=== PATIENT | male | born 1950 | race Hispanic/Latino ===

== ENCOUNTER 2019-10-24 01:02 | Emergency (ER) | payer MEDICARE, OTHER ==
[2019-10-24 01:44] LABS: #Basophils 0.1 thou/uL (0.0-0.2); #Eosinphils 0.1 thou/uL (0.0-0.7); #Lymphocytes 1.9 thou/uL (1.20-3.40); #Monocytes 1.1 thou/uL (0.11-0.59); #Neutrophils 5.1 thou/uL (1.40-6.50); %Basophils 1.5 % (0.0-1.0); %Eosinophils 1.3 % (0.0-10.0); %Lymphocytes 22.3 % (21.0-51.0); %Neutrophils 61.9 % (42.0-75.0); Hemoglobin 12.9 g/dL (14.0-18.0); Mean Corpuscular HGB CONC 30.5 g/dL (32.0-36.0); Mean Corpuscular Volume 91.8 fL (78.0-98.0); Mean Platelet Volume 8.2 fL (7.4-10.4); Platelet Count 135 thou/uL (130-400); RBC Distribution Width 15.6 % (11.5-14.5); White Blood Cell (WBC) Count 8.3 thou/uL (4.8-10.8)
[2019-10-24] MEDS ORDERED: Ventolin HFA Inhaler 60 PUFF INHALER ONE (01:47)
[2019-10-24 01:50] LABS: Prothrombin Time 13.5 SEC (12.0-14.7)
[2019-10-24 01:51] LABS: PTT 36.6 SEC (22.9-36.1)
[2019-10-24 01:59] LABS: D-Dimer Test 3.92 *mcg/mL (0.27-0.43)
[2019-10-24 02:13] LABS: ALT (SGPT) 12 U/L (8-55); AST (SGOT) 29 U/L (5-34); Albumin 3.9 g/dL (3.4-4.8); Alkaline Phosphatase 261 U/L (40-110); Anion Gap 14 mmol/L (10-20); BUN (Urea Nitrogen) 10 mg/dL (8.4-25.7); Bilirubin, Total 0.6 mg/dL (0.2-1.2); Calc. Creatinine Clearance 0 mL/min (70-130); Calcium 8.3 mg/dL (7.8-10.44); Carbon Dioxide 23 mmol/L (23-31); Chloride 106 mmol/L (98-107); Estimated GFR-MDRD Greater than 90; Glucose 124 mg/dL (80-115); Potassium 3.5 mmol/L (3.5-5.1); Protein, Total 6.9 g/dL (5.8-8.1); Sodium 139 mmol/L (136-145)
[2019-10-24] MEDS ORDERED: Furosemide 40 MG/4 ML VIAL ONE (02:13)
[2019-10-24] MEDS ORDERED: cefTRIAXone\\ROCEPHIN 2 GM VIAL ONE (02:13)
[2019-10-24] MEDS ORDERED: Nitroglycerin 2% Ointment 1 INCH/1 GM Packet ONE (02:13)
[2019-10-24] MEDS ORDERED: Sodium Chloride 0.9% 100 ML ONE (02:13)
[2019-10-24 02:20] LABS: Bilirubin Negative (Negative); Blood, Urine Trace (Negative); Clarity Clear (Clear); Glucose, Urine (Dipstick) Negative (Negative); Leukocyte Trace (Negative); Nitrite Negative (Negative); Protein, Urine (Dipstick) 100 mg/dL (Neg-Trace); Urobilinogen 0.2 mg/dL (Less than 2)
[2019-10-24 02:31] LABS: Bacteria/HPF Rare-Few HPF (None Seen); Mucous/LPF 2+ LPF (<2+); RBC/HPF 0-3 HPF (0-3)
[2019-10-24] MEDS ORDERED: Azithromycin 500 MG VIAL ONE (03:10)
[2019-10-24] MEDS ORDERED: Sodium Chloride 0.9% 500 ML ONE (03:10)
--- NOTE | 2019-10-24 07:30 | CT ---
PRELIMINARY REPORT/[facility]/EMERGENCY AFTER HOURS PROCEDURE: EXAM: CTA Chest with Intravenous Contrast CLINICAL HISTORY: SOB WITH HYPOXIA. HX OF CA COMPARISON: None provided. FINDINGS: PULMONARY ARTERIES No filling defects in the pulmonary arteries to suggest acute pulmonary embolus, noting limited evalu ation of the segmental and subsegmental branches due to motion artifact. AORTA No thoracic aortic aneurysm or dissection. Moderate atherosclerotic calcifications. LUNGS Motion limits evaluation. Passive atelectasis and linear atelectasis/scarring bilaterally. Moderate peribronchial and interstitial thickening. Scattered patchy opacities in the left greater than right upper lobes. PLEURAL SPACES Nonspecific diffusely increased density of the visualized osseous structures. New graft small pleural effusions. No pneumothorax. HEART AND MEDIASTINUM Cardiomegaly. Coronary artery calcifications. No pericardial effusion. LYMPH NODES No lymphadenopathy. BONES Advanced thoracic spondylosis. CHEST WALL AND UPPER ABDOMEN Steatosis. Small hiatal hernia. Unremarkable chest wall. IMPRESSION: 1. Motion limits evaluation. 2. No evidence of pulmonary embolus. 3. Cardiomegaly and findings suggesting moderate cardiogenic edema with small pleural effusions in th e absence of any clinical findings suspicious for infection/inflammation. I personally discussed these findings with Dr. Stefan Mccoy via telephone at 4:41 AM EDT on 10/24/2019 . ELECTRONICALLY SIGNED BY: Romeo Martinez MD Oct 24, 2019 3:45:41 AM CDT This report is intended for review by the ordering physician only, in accordance of law. If you recei ve this report in error, please call [facility] at [phone]. FINAL REPORT EMERGENCY AFTER HOURS CTA CHEST WITH CONTRAST: FINDINGS/IMPRESSION: I agree with the findings and impression given in the preliminary report per [facility] physici an. 1. No evidence of pulmonary thromboembolism. 2. Bilateral pleural effusions. 3. There are air space opacities in bilateral upper lobes which may represent pulmonary edema or ear ly infiltrates.
--- NOTE | 2019-10-24 07:42 | RAD ---
SINGLE VIEW OF THE CHEST: COMPARISON: 06/06/2019. HISTORY: Hypoxia and shortness of breath. FINDINGS: A single view of the chest shows a cardiomediastinal silhouette which is upper limits of normal in s ize. The [employer]iPort is unchanged in position. Diffuse increased interstitial lung markings are presen t. A calcified granuloma projects over the right upper lobe. There are questionable superimposed mu ltifocal infiltrates. Shrapnel projects over the left upper chest wall. IMPRESSION: Increased interstitial lung disease with possible superimposed infiltrates. POS: [facility]
[2019-10-24] MEDS ORDERED: Iopamidol 370 76% 125 ML VIAL FS ONE (13:21)
[2019-10-24] MEDS ORDERED: Sodium Chloride 0.9% 100 ML BAG ONE (13:21)
== END 2019-10-24 04:26 | disposition short-term general hospital (02) ==
LOC: MADERS 01:02
DX: R06.02 Shortness of breath (principal); D89.9 Disorder involving the immune mechanism, unspecified; I10 Essential (primary) hypertension; Z87.891 Personal history of nicotine dependence
CPT/HCPCS: 71045; 71275; 80053; 83605; 83880; 84484; 85025; 85379; 85610; 85730; 87040; 87086; 87633; 87804 ×2; 93005; 94760; U0001; 81003; 81015; 96365; 96375; J0456; J0696; J1940; J3490; J7050; Q9967